=== PATIENT | female | born 1955 | race Caucasian/White ===

== ENCOUNTER 2017-11-03 14:48 | Emergency (ER) | payer OTHER ==
[~2017-11-03] VITALS: Ht 162.6 cm; Wt 70.8 kg
--- NOTE | 2017-11-03 14:49 | NUR ---
BIB by paramedics Iv line to right hand G18. Vitals stable: SBP 99/79, HR 68, 92% RA. no c/of pain, but stating to be really cold. pt. AAOX4.
[2017-11-03] MEDS ORDERED: INHALER (14:54)
[2017-11-03] MEDS ORDERED: IV NORMAL SALINE 1000 ML BAG IV ONE (15:00)
--- NOTE | 2017-11-03 15:04 | NUR ---
At bedside to examine patient.
[2017-11-03 15:09] LABS: BASOPHILS # (AUTO) 0.1 K/uL (0.0-8.0); BASOPHILS % (AUTO) 0.7 % (0.0-2.0); EOSINOPHILS # (AUTO) 0.1 K/uL (0.0-0.7); EOSINOPHILS % (AUTO) 0.6 % (0.0-7.0); HEMATOCRIT 38.8 % (31.2-41.9); LYMPHOCYTES # (AUTO) 1.6 K/uL (20.0-40.0); LYMPHOCYTES % (AUTO) 17.9 % (20.5-51.5); MEAN CORPUSCULAR HEMOGLOBIN 32.3 uug (24.7-32.8); MEAN CORPUSCULAR HGB CONC 34 g/dL (32.3-35.6); MEAN CORPUSCULAR VOLUME 96.1 fL (75.5-95.3); MONOCYTES # (AUTO) 0.5 K/uL (2.0-10.0); MONOCYTES % (AUTO) 5.3 % (0.0-11.0); NEUTROPHILS # (AUTO) 6.6 K/uL (1.8-8.9); NEUTROPHILS % (AUTO) 75.5 % (38.5-71.5); PLATELET COUNT (AUTO) 218 K/uL (179-408); RED BLOOD CELL COUNT(AUTO) 4.04 MIL/uL (3.63-4.92); WHITE BLOOD COUNT (AUTO) 8.8 K/uL (3.8-11.8)
[2017-11-03 15:17] LABS: CREATININE 0.8 mg/dL (0.6-1.3); POTASSIUM 3.3 mmol/L (3.5-5.1)
[2017-11-03 15:22] LABS: BILIRUBIN,DIRECT 0.1 mg/dL (0.0-0.2); BILIRUBIN,TOTAL 0.6 mg/dL (0.2-1.0); TOTAL PROTEIN, SERUM 5.4 g/dL (6.4-8.2)
--- NOTE | 2017-11-03 15:59 | NUR ---
Dr. Torres at bedside updating pt. of test results.
--- NOTE | 2017-11-03 16:38 | NUR ---
DCD instructions given to patient who verbalized understanding. Left room AAOX4. vitals stable. no c/of pain or dizziness. HR 75 112/70 98% Sat on RA.
== END 2017-11-03 16:40 | disposition home or self-care (01) ==
LOC: ER 14:48
DX: R55 Syncope and collapse (principal); J45.909 Unspecified asthma, uncomplicated
CPT/HCPCS: 36415; 71045; 80048; 80076; 84484; 85025; 85730; 93005; 96360; 99285; A4663; J7030; 70030-TC